=== PATIENT | male | born 1995 | race Caucasian/White ===

== ENCOUNTER 2017-05-09 22:22 | Emergency (ER) | payer OTHER | END 2017-05-09 23:59 | disposition home or self-care (01) | LOC: ER1 22:22 | DX: S50.12XA Contusion of left forearm, initial encounter (principal); W20.8XXA Other cause of strike by thrown, projected or falling object, initial encounter; Y92.89 Other specified places as the place of occurrence of the external cause; Y99.0 Civilian activity done for income or pay | CPT/HCPCS: 73090; 73110; 99283 ==

== ENCOUNTER → 2021-10-25 | Outpatient (CLI) | payer OTHER ==
[~2021-10-25] MED LIST: NAPROSYN500 MG PO
== END ==
LOC: KOH-I 16:13
DX: M25.561 Pain in right knee (principal)
CPT/HCPCS: 73562

== ENCOUNTER → 2021-11-10 | Outpatient (CLI) | payer OTHER | LOC: EMI 16:37 | DX: M25.561 Pain in right knee (principal) | CPT/HCPCS: 73721 ==